=== PATIENT | male | born 1985 | race Caucasian/White ===

== ENCOUNTER 2017-11-04 22:55 | Emergency (ER) | payer OTHER ==
[~2017-11-04] VITALS: Ht 190.5 cm; Wt 77.7 kg
[~2017-11-04 22:55] MED LIST: CALCITRIOL0.25 MCG PO; FUROSEMIDE20 MG PO; LASIX20 MG PO; LISINOPRIL5 MG PO; LORTAB 5-325 M1 EACH PO; NORCO 5/3251 TABLET PO; TYLENOL EXTRA500 MG PO; VITAMIN D-32000 UNI2 PO; ZANTAC150 MG PO; ZOFRAN ODT4 MG PO; ZOFRAN ODT8 MG PO; ZOFRAN4 MG PO
[2017-11-04 23:58] LABS: HEMATOCRIT 27.2 % (38.0-50.0); HEMOGLOBIN 9.5 G/DL (12.5-16.6); MCH 31.3 PG (29.0-34.0); MCHC 34.9 G/DL (30.0-36.0); MCV 89.5 FL (86-99); PLATELET COUNT 221 K/uL (156-360); RBC DIS.WIDTH-CV 11.5 % (11.8-14.6); RBC DIS.WIDTH-SD 37.3 % (39-53); RED BLOOD COUNT 3.04 M/uL (4.00-5.50); WHITE BLOOD COUNT 7.5 K/uL (4.1-10.2)
[2017-11-05 00:10] LABS: ALBUMIN 3.9 g/dL (3.2-4.8)
[2017-11-05 00:11] LABS: CHLORIDE 105 mEq/L (99-109); POTASSIUM 3.8 mEq/L (3.7-5.4); SODIUM 139 mEq/L (136-147)
[2017-11-05 00:13] LABS: GLUCOSE 104 mg/dL (70-99); TOTAL PROTEIN 7.2 g/dL (6.4-8.3)
[2017-11-05 00:15] LABS: TOTAL BILIRUBIN 0.5 mg/dL (0.0-1.0)
[2017-11-05 00:16] LABS: ALKALINE PHOSPHATASE 84 IU/L (3-129)
[2017-11-05 00:17] LABS: APPEARANCE CLEAR ((CLEAR)); BILIRUBIN NEGATIVE; BLOOD SMALL; COLOR STRAW ((YELLOW)); GLUCOSE (STRIP) 50; KETONES NEGATIVE; LEUKOCYTES NEGATIVE; NITRITE NEGATIVE; PROTEIN (STRIP) 100; SPECIFIC GRAVITY 1.006 (1.000-1.030); UROBILINOGEN 0.2 MG/DL (0.2-1.0)
[2017-11-05 00:17] LABS: CREATININE 8.1 mg/dL (0.6-1.3); GFR ESTIMATE (CALCULATED) 8 mL/min/ (58.99-99999)
[2017-11-05 00:18] LABS: AST (GOT) 9 IU/L (2-34); UREA NITROGEN (BUN) 45 mg/dL (9-23)
[2017-11-05 00:19] LABS: ALT (GPT) 6 IU/L (3-49)
[2017-11-05 00:21] LABS: BACTERIA RARE /HPF; EPITHELIAL CELLS NONE SEEN /HPF; MUCUS NONE SEEN /LPF; RED BLOOD CELLS 0-5 /HPF (0-5); UCUL ADDED? NO; WHITE BLOOD CELLS 0-5 /HPF (0-5)
[2017-11-05 06:37] VITALS: BP 152/106
== END 2017-11-05 06:41 | disposition short-term general hospital (02) ==
LOC: EME 22:55
DX: N17.9 Acute kidney failure, unspecified (principal); R11.2 Nausea with vomiting, unspecified; Z94.0 Kidney transplant status; I12.9 Hypertensive chronic kidney disease with stage 1 through stage 4 chronic kidney disease, or unspecified chronic kidney disease; N18.3 Chronic kidney disease, stage 3 (moderate)
CPT/HCPCS: 80053; 81003; 85027; 99281; 99284

== ENCOUNTER 2017-12-12 12:31 | Inpatient (IN) | payer OTHER ==
[~2017-12-12] VITALS: Ht 190.5 cm; Wt 72.6 kg
[~2017-12-12 12:31] MED LIST changes: +LISINOPRIL20 MG PO
[2017-12-12 12:50] LABS: HEMATOCRIT 22.2 % (38.0-50.0); HEMOGLOBIN 7.6 G/DL (12.5-16.6); MCH 31.4 PG (29.0-34.0); MCHC 34.2 G/DL (30.0-36.0); MCV 91.7 FL (86-99); PLATELET COUNT 232 K/uL (156-360); RBC DIS.WIDTH-CV 12.5 % (11.8-14.6); RBC DIS.WIDTH-SD 41.2 % (39-53); RED BLOOD COUNT 2.42 M/uL (4.00-5.50); WHITE BLOOD COUNT 7.8 K/uL (4.1-10.2)
[2017-12-12 13:00] LABS: CHLORIDE 98 mEq/L (99-109); POTASSIUM 4.5 mEq/L (3.7-5.4); SODIUM 134 mEq/L (136-147)
[2017-12-12 13:02] LABS: GLUCOSE 108 mg/dL (70-99)
[2017-12-12 13:05] LABS: GFR ESTIMATE (CALCULATED) 8 mL/min/ (58.99-99999)
[2017-12-12 13:06] LABS: UREA NITROGEN (BUN) 34 mg/dL (9-23)
[2017-12-12 13:11] LABS: TROP-I INTERPRETATION NEGATIVE; TROPONIN-I 0.16 ng/mL (0.0-0.30)
[2017-12-12] MEDS ORDERED: CELLCEPT500 MG PO (14:35)
[2017-12-12] MEDS ORDERED: METOPROLOL SUCC25 MG PO (14:35)
[2017-12-12] MEDS ORDERED: NIFEDIPINE ER60 MG PO (14:36)
[2017-12-12] MEDS ORDERED: PREDNISONE5 MG PO (14:36)
[2017-12-12] MEDS ORDERED: PROGRAF1 MG PO (14:37)
[2017-12-12 15:56] LABS: HEMATOCRIT 21.9 % (38.0-50.0); HEMOGLOBIN 7.5 G/DL (12.5-16.6); MCH 31.1 PG (29.0-34.0); MCHC 34.2 G/DL (30.0-36.0); MCV 90.9 FL (86-99); PLATELET COUNT 239 K/uL (156-360); RBC DIS.WIDTH-CV 12.4 % (11.8-14.6); RBC DIS.WIDTH-SD 40.9 % (39-53); RED BLOOD COUNT 2.41 M/uL (4.00-5.50); WHITE BLOOD COUNT 8.1 K/uL (4.1-10.2)
[2017-12-12 15:59] LABS: IRON 10 MCG/DL (35-150); TRANSFERRIN (TIBC) 166.6 mg/dL (215-380); TRANSFERRIN SATUR. 6 % (20-55)
[2017-12-12 16:19] VITALS: BP 176/102
[2017-12-12 17:44] LABS: TROP-I INTERPRETATION NEGATIVE; TROPONIN-I 0.14 ng/mL (0.0-0.30)
[2017-12-12 22:35] VITALS: BP 171/88
[2017-12-13] VITALS (7 sets, daily range): BP systolic 118–138; BP diastolic 72–80
[2017-12-13 05:27] LABS: HEMATOCRIT 26.6 % (38.0-50.0); HEMOGLOBIN 8.8 G/DL (12.5-16.6); MCH 29.9 PG (29.0-34.0); MCHC 33.1 G/DL (30.0-36.0); MCV 90.5 FL (86-99); RBC DIS.WIDTH-CV 12.8 % (11.8-14.6); RBC DIS.WIDTH-SD 41.7 % (39-53)
[2017-12-13 05:35] LABS: PLATELET COUNT 313 K/uL (156-360); RED BLOOD COUNT 2.94 M/uL (4.00-5.50)
[2017-12-13 05:56] LABS: ALBUMIN 3.8 G/DL (3.2-4.8); ALKALINE PHOSPHATASE 64 IU/L (3-129); ALT (GPT) 7 IU/L (3-49); AST (GOT) 9 IU/L (2-34); CHLORIDE 98 MEQ/L (99-109); GFR ESTIMATE (CALCULATED) 13 mL/min/ (58.99-99999); GLUCOSE 110 mg/dL (70-99); POTASSIUM 4.2 MEQ/L (3.7-5.4); SODIUM 138 MEQ/L (136-147); TOTAL BILIRUBIN 0.4 MG/DL (0.0-1.0); TOTAL PROTEIN 6.4 G/DL (6.4-8.3); UREA NITROGEN (BUN) 21 mg/dL (9-23)
[2017-12-13 05:57] LABS: CREATININE 5.4 MG/DL (0.6-1.3)
[2017-12-13 17:41] LABS: TROP-I INTERPRETATION NEGATIVE; TROPONIN-I 0.07 ng/mL (0.0-0.30)
[2017-12-14 03:49] VITALS: BP 123/74; BP 134/82
[2017-12-14 06:51] LABS: HEMATOCRIT 27.2 % (38.0-50.0); HEMOGLOBIN 9.2 G/DL (12.5-16.6); MCH 30.6 PG (29.0-34.0); MCHC 33.8 G/DL (30.0-36.0); MCV 90.4 FL (86-99); PLATELET COUNT 340 K/uL (156-360); RBC DIS.WIDTH-CV 12.5 % (11.8-14.6); RBC DIS.WIDTH-SD 40.6 % (39-53); RED BLOOD COUNT 3.01 M/uL (4.00-5.50); WHITE BLOOD COUNT 10.3 K/uL (4.1-10.2)
[2017-12-14 08:33] VITALS: BP 132/75
== END 2017-12-14 11:02 | disposition home or self-care (01) | DRG 811 ==
LOC: EME 12:31 → EDOF 14:18 → 4EAST 14:18 → ENRESERV 14:23 → 4EAST 16:02 → ENRESERV 12-13 18:33 → 2EAST 12-13 21:16
PROVIDERS: Emergency Medicine; Internal Medicine; Student in an Organized Health Care Education/Training Program
PROC: 30233N1 Transfusion of Nonautologous Red Blood Cells into Peripheral Vein, Percutaneous Approach (ICD-10-PCS; principal; 2017-12-12)
PROC: 5A1D70Z Performance of Urinary Filtration, Intermittent, Less than 6 Hours Per Day (ICD-10-PCS; 2017-12-12)
DX: D50.9 Iron deficiency anemia, unspecified (principal); R07.2 Precordial pain; R74.8 Abnormal levels of other serum enzymes; R94.31 Abnormal electrocardiogram [ECG] [EKG]; I16.0 Hypertensive urgency; T86.12 Kidney transplant failure; Y83.0 Surgical operation with transplant of whole organ as the cause of abnormal reaction of the patient, or of later complication, without mention of misadventure at the time of the procedure; I12.0 Hypertensive chronic kidney disease with stage 5 chronic kidney disease or end stage renal disease; N18.6 End stage renal disease; D63.1 Anemia in chronic kidney disease; N25.81 Secondary hyperparathyroidism of renal origin; N26.9 Renal sclerosis, unspecified; Z99.2 Dependence on renal dialysis; J98.11 Atelectasis; Q61.3 Polycystic kidney, unspecified; G43.909 Migraine, unspecified, not intractable, without status migrainosus; F32.9 Major depressive disorder, single episode, unspecified; F41.9 Anxiety disorder, unspecified
CPT/HCPCS: 71046; 80048; 80053; 83540; 84466; 84484; 85027; 86850; 86900; 86901; 86920; 93005; 99281; 99285; J1644; J1756; J7050; J7507; J7512; J7517; P9016; S0028

== ENCOUNTER 2018-01-05 07:58 | Day surgery (SDC) | payer OTHER ==
[~2018-01-05] VITALS: Ht 190.5 cm; Wt 77.1 kg
[~2018-01-05 07:58] MED LIST changes: +CELLCEPT500 MG PO; +METOPROLOL SUCC25 MG PO; +NIFEDIPINE ER60 MG PO; +PREDNISONE5 MG PO; +PROGRAF1 MG PO
== END 2018-01-05 10:49 | disposition home or self-care (01) ==
LOC: CATH 07:58
DX: T82.41XA Breakdown (mechanical) of vascular dialysis catheter, initial encounter (principal); Z94.0 Kidney transplant status; I12.9 Hypertensive chronic kidney disease with stage 1 through stage 4 chronic kidney disease, or unspecified chronic kidney disease; N18.9 Chronic kidney disease, unspecified; Z99.2 Dependence on renal dialysis
CPT/HCPCS: 87641; C1750; C1769; J0360; J0690; J1644; J2250; J3010; S0020

== ENCOUNTER 2018-01-09 11:47 | Day surgery (SDC) | payer OTHER ==
[~2018-01-09] VITALS: Ht 190.5 cm; Wt 77.2 kg
[2018-01-09 12:11] VITALS: BP 174/100
[2018-01-09 12:29] LABS: HEMATOCRIT 26.8 % (38.0-50.0); HEMOGLOBIN 9.1 G/DL (12.5-16.6); MCH 31.3 PG (29.0-34.0); MCV 92.1 FL (86-99); RBC DIS.WIDTH-CV 13.6 % (11.8-14.6); RBC DIS.WIDTH-SD 45.4 % (39-53); RED BLOOD COUNT 2.91 M/uL (4.00-5.50); WHITE BLOOD COUNT 4.7 K/uL (4.1-10.2)
[2018-01-09 13:34] LABS: PLAT.SUFFICIENCY ADEQUATE
[2018-01-09 13:47] LABS: PLATELET COUNT 176 K/uL (156-360)
[2018-01-09] MEDS ORDERED: NORCO 5/3251 TABLET PO (16:39)
[2018-01-09 18:40] VITALS: BP 183/106
[2018-01-09 19:35] VITALS: BP 161/94
== END 2018-01-09 19:55 | disposition home or self-care (01) ==
LOC: SDC 11:47
PROVIDERS: Surgery
PROC: 031B09F Bypass Right Radial Artery to Lower Arm Vein with Autologous Venous Tissue, Open Approach (ICD-10-PCS; principal; 2018-01-09)
DX: I12.0 Hypertensive chronic kidney disease with stage 5 chronic kidney disease or end stage renal disease (principal); N18.5 Chronic kidney disease, stage 5; Z99.2 Dependence on renal dialysis; T86.12 Kidney transplant failure
CPT/HCPCS: 84132; 85027; 87641; J0360; J0690; J1644; J2250; J2405; J3010; S0020